=== PATIENT | female | born 1965 | race Caucasian/White ===

== ENCOUNTER 2016-11-22 23:37 | Emergency (ER) | payer BC ==
[~2016-11-22] VITALS: Ht 160 cm; Wt 85.1 kg
[2016-11-22] MEDS ORDERED: PERCOCET 5/31 TABLET PO (23:59)
[2016-11-22] MEDS ORDERED: CLEOCIN300 MG PO (23:59)
[2016-11-23 00:28] VITALS: BP 141/77
== END 2016-11-23 00:29 | disposition home or self-care (01) ==
LOC: EME 23:37
DX: H92.02 Otalgia, left ear (principal); Z88.8 Allergy status to other drugs, medicaments and biological substances
CPT/HCPCS: 99281; 99283